=== PATIENT | female | born 1960 | race Caucasian/White ===

== ENCOUNTER 2023-11-12 13:50 | Emergency (ER) | payer SELFPAY ==
[2023-11-12 14:09] VITALS: BP 166/85; PULSE 95; RESP 18; TEMP 98.2; BMI 25.0
[2023-11-12 15:54] LABS: BASO % 0.7 % (0-2.0); EOS % 1.5 % (0-4.5); HEMATOCRIT 38.5 % (32.4-45.2); LYMPH % 26.8 % (8-40); MCH 28.7 pg (25.7-33.7); MCHC 33.9 g/dl (32.0-36.0); MEAN CELL VOLUME 84.6 fl (80-96); MEAN PLT VOLUME 9.9 fl (7.5-11.1); MONO % 5.5 % (3.8-10.2); NEUT % 65.5 % (42.8-82.8); PLATELET COUNT 258 10^3/uL (134-434); RBC 4.55 M/mm3 (3.60-5.2); RDW 12.7 % (11.6-15.6); WHITE BLOOD COUNT 10.1 K/mm3 (4.0-10.0)
[2023-11-12 15:59] LABS: INR 1.09 (0.83-1.09); PROTHROMBIN TIME (PATIENT) 12.6 SEC (9.7-13.0)
[2023-11-12 16:35] LABS: POTASSIUM 4.6 mmol/L (3.5-5.1)
[2023-11-12 16:37] LABS: CALCIUM 9.4 mg/dL (8.5-10.1)
[2023-11-12 16:38] LABS: ALBUMIN 3.3 g/dl (3.4-5.0); BLOOD UREA NITROGEN 8.7 mg/dL (7-18)
[2023-11-12 16:41] LABS: CREATININE 0.5 mg/dL (0.55-1.3)
[2023-11-12 16:42] LABS: BILIRUBIN,TOTAL 0.6 mg/dL (0.2-1); TOT PROT 7.8 g/dl (6.4-8.2)
[2023-11-12] MEDS ORDERED: PENICILLIN V POTASSIUM 500 MG TABLET PO ONE (18:42)
[2023-11-12] MEDS ORDERED: CLINDAMYCIN 600MG PREMIX IVPB 600 MG/50 ML BAG IVPB ONE ×2 (18:48→18:55)
== END 2023-11-12 20:33 | disposition home or self-care (01) ==
LOC: JER 13:50
DX: K04.7 Periapical abscess without sinus (principal); L03.211 Cellulitis of face; R22.0 Localized swelling, mass and lump, head; L53.9 Erythematous condition, unspecified; M27.8 Other specified diseases of jaws
CPT/HCPCS: 36415; 70491-TC; 80053; 83605; 85025; 85610; 85730; 86850; 86900; 86901; 87040; 99285-25; Q9967